=== PATIENT | male | born 1930 | race Caucasian/White ===

== ENCOUNTER 2016-09-07 17:33 | Inpatient (IN) | payer MEDICARE, MEDICAID ==
[2016-09-07] MEDS ORDERED: NS 0.9% 1000 ML* 1,000 ML IV ONE (18:10)
[2016-09-07 18:33] LABS: Hematocrit 44 % (42-52); Hemoglobin 14.4 g/dl (14.0-18.0); Mean Corpuscular HGB Conc 33 g/dl (31-36); Mean Corpuscular Hemoglobin 29 pg (27-31); Mean Corpuscular Volume 88 fL (80-94); Mean Platelet Volume 7 um3 (7.4-10.4); Red Blood Count 4.99 10^6/ul (4.0-5.4); Red Cell Distribution Width 15 % (10.5-15); White Blood Count 17.3 10^3/ul (3.5-10.8)
[2016-09-07 18:45] LABS: ALT 16 U/L (7-52); AST 18 U/L (13-39); Albumin 3.5 g/dL (3.2-5.2); Alkaline Phosphatase 112 U/L (34-104); Anion Gap 8 mmol/L (2-11); Blood Urea Nitrogen 16 mg/dL (6-24); C Reactive Protein 7.56 mg/L (< 5.00); CO2 Carbon Dioxide 28 mmol/L (22-32); Calcium 8.9 mg/dL (8.6-10.3); Chloride 105 mmol/L (101-111); EGFR African American 104.7 (>60); EGFR Non-African American 81.4 (>60); Globulin 4.1 g/dL (2-4); Glucose 107 mg/dL (70-100); Lipase 32 U/L (11.0-82.0); Potassium 3.7 mmol/L (3.5-5.0); Sodium 141 mmol/L (133-145); Total Protein 7.6 g/dL (6.4-8.9)
--- NOTE | 2016-09-07 20:40 | RAD ---
Indication: Seizure. Dehydration. Cough. Comparison: January 10, 2016 Technique: Upright AP 2015 hours Report: Airspace consolidation at the RIGHT mid to upper lung zone without volume loss suspicious for pneumonia. Suggestion of potential additional alveolar consolidation at the bilateral lung bases. Negative for pleural effusion or pneumothorax. Mild cardiomegaly. Unremarkable central pulmonary vasculature. Tortuous thoracic aorta. IMPRESSION: Mild ill-defined bilateral alveolar opacities concerning for potential bronchopneumonia.
[2016-09-07 20:44] LABS: Phenytoin < 2.5 mcg/mL (10-20)
[2016-09-07] MEDS ORDERED: Levofloxacin 750 MG IVPREMIX(* 750 MG/150 ML BAG IVPB ONE (21:10)
[2016-09-07 21:16] LABS: Urine Bacteria Absent (Absent); Urine Bilirubin Negative (Negative); Urine Glucose Negative (Negative); Urine Nitrite Negative (Negative)
[2016-09-07] MEDS ORDERED: Fosphenytoin(*) 1,000 MG in NS 0.9% 50 ML* 50 ML IVPB ONE (21:16)
[2016-09-07] MEDS ORDERED: Senna/Docusate (NF) TAB PO PRN (21:27)
[2016-09-07] MEDS ORDERED: Acetaminophen TAB* 325 MG PO PRN (21:39)
[2016-09-07] MEDS ORDERED: Benzonatate CAP* 100 MG PO PRN (21:39)
[2016-09-07] MEDS ORDERED: Senna TAB PO PRN (21:43)
[2016-09-07] MEDS ORDERED: Docusate CAP* 100 MG PO PRN (21:44)
[2016-09-07] MEDS ORDERED: Heparin VIAL(*) 5000 UNITS/ML VIAL (FIVE THOUSAND) SUBCUT SCH (22:00)
[2016-09-07] MEDS ORDERED: Azithromycin IV(*) 500 MG in NS 0.9% 250 ML* 250 ML IVPB SCH (22:30)
[2016-09-08] MEDS ORDERED: Piperac/Tazob 3.375 gm in NS* 3.375 GM/100 ML BAG IVPB ONE
[2016-09-08] MEDS ORDERED: cefTRIAXone VIAL(*) 1,000 MG in NS 0.9% 50 ML* 50 ML IVPB SCH ×2
--- NOTE | 2016-09-08 00:02 | HP ---
HISTORY AND PHYSICAL: DATE OF ADMISSION: 09/07/16 PRIMARY CARE PHYSICIAN: Dr. Higgins. CHIEF COMPLAINT: Nausea and vomiting. HISTORY OF PRESENT ILLNESS: The patient is an 86-year-old gentleman who presents to [facility] from home after 4 episodes of intractable nausea and vomiting. Unfortunately, the patient at this time has such difficulty hearing that it is difficult to get any kind of a history for him. He also apparently has a history of a CVA and there is a question of whether or not he actually has dementia as well. Apparently, the patient arrived in the ER and upon arrival in the ER did exhibit signs and symptoms consistent with seizure act. The patient also apparently complained of increased weakness when he came in. He has difficulty moving both legs and can feel pain in his left arm, but normally walks fine with the cane. According to the nursing notes, the patient looked to be having a grand mal seizure here. There was a partially eaten [employer] in the patient's mouth at the time. This has subsided. The patient's labs were checked and it looked like his Dilantin level was low. PAST MEDICAL HISTORY: Significant for hypertension, seizure disorders, hyperlipidemia, congestive heart failure, coronary artery disease with 3 stents placed in [place] in 2009, cardioembolic CVA with hemiparesis in 2009, AFib, depression, anxiety, left hip fracture, status post surgery in 2011, BPH, nicotine abuse. CURRENT MEDICATIONS: 1. Eliquis 2.5 mg twice daily. 2. Alprazolam 1 mg 3 times a day. 3. Acetaminophen 1000 mg twice a day. 4. Baclofen 20 mg at bedtime. 5. Amiodarone 100 mg daily. 6. Finasteride 5 mg in the morning. 7. Cholecalciferol 50,000 units weekly. 8. Levothyroxine 175 mcg in the morning. 9. Furosemide 40 mg in the morning. 10. Metoprolol succinate 25 mg daily. 11. Phenytoin 100 mg 2 times a day. 12. Senna/docusate 2 tabs at bedtime. 13. Tramadol 50 mg 2 times a day as needed. 14. Flomax 0.4 mg daily. ALLERGIES: He has no known drug allergies. FAMILY HISTORY: Positive for coronary artery disease. SOCIAL HISTORY: Quit tobacco in 2009. No alcohol. 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 His ex-, Robyn Bowens, is his healthcare proxy and he also lives with his friend, Laurie Fry. REVIEW OF SYSTEMS: Difficult to obtain from the patient with his difficulty hearing but all pertinent positives and negatives are in the history of present illness. Otherwise, it is negative. PHYSICAL EXAMINATION GENERAL: He is a pleasant gentleman, lying in bed, in no acute distress. VITAL SIGNS: Temperature 97.9 degrees, heart rate 57 beats per minute, respiratory rate 20 breaths per minute, pulse ox 99%, blood pressure 195/81. HEENT: Normocephalic, atraumatic. Pupils are equal, round, and reactive to light. Moist mucous membranes. NECK: Supple. No JVD, bruits, palpable thyroid or lymphadenopathy. CHEST: His chest is clear to auscultation and percussion bilaterally. CARDIOVASCULAR: S1, S2 appreciated. ABDOMEN: Positive bowel sounds in all 4 quadrants. Soft, nontender, and nondistended. No hepatosplenomegaly. EXTREMITIES: No cyanosis or clubbing or edema. NEURO: He is alert and oriented and very hard of hearing. Moves all extremities. SKIN: No distinct rashes or abnormalities. DIAGNOSTIC STUDIES/LAB DATA: Sodium 141, potassium 3.7, chloride 105, CO2 28, BUN 16, creatinine 0.89, glucose 107. CRP 7.56. White count 17.3, hemoglobin 14.4, hematocrit 44, and platelets are 391. INR 1.1. Urinalysis: +3 rbc's, phenytoin level is less than 2.5. Chest x-rays as reviewed by Radiology shows mild well defined bilateral alveolar opacities concerning for potential bronchopneumonia. ASSESSMENT AND PLAN: 1. Possible bronchopneumonia. We will start the patient on Zosyn and Zithromax. The recent we started on Zosyn is he may have vomited and aspirated. Zithromax for possible atypicals. Check sputum culture, C and S, urine for Legionella and pneumococcal antigen. I anticipate the patient will make a quick turn around and hopefully go home on p.o. antibiotics. Check CBC in the morning. 2. Seizure disorder. It is unclear if he has been compliant with his Dilantin or not. Apparently he supposedly is according to what his says. He was loaded with Dilantin here and will restart it today. We will check a Dilantin level in the morning. We will have neuro checks q.4 hours. 3. Hypothyroidism, stable. Continue Synthroid. 4. Benign prostatic hypertrophy. Stable, continue finasteride and Flomax. 5. Atrial fibrillation. One chart says he is on the Eliquis. The other one says he is not, but we will continue Eliquis now and confirm in the morning. 6. DVT prophylaxis, on Eliquis. 7. FEN. Regular diet. 8. The patient is a full code. TIME SPENT: Over 80 minutes were spent on this H and P, more than 45 minutes was spent in direct [id number] contact with the patient in evaluation, physical exam, counseling, and coordination of care. CC: Dr. Higgins* [id number]/[facility] #: [id number] JEFE
[2016-09-08] MEDS ORDERED: Metoprolol Tartrate IV* 1 MG/ML 5 ML VIAL IV PRN (00:33)
[2016-09-08] MEDS: amLODIPine TAB* 5 MG PO SCH ×2 (03:45→09:39)
[2016-09-08 05:23] LABS: Hematocrit 41 % (42-52); Hemoglobin 13.5 g/dl (14.0-18.0); Mean Corpuscular HGB Conc 33 g/dl (31-36); Mean Corpuscular Hemoglobin 29 pg (27-31); Mean Corpuscular Volume 88 fL (80-94); Mean Platelet Volume 7 um3 (7.4-10.4); Red Cell Distribution Width 15 % (10.5-15); White Blood Count 21.7 10^3/ul (3.5-10.8)
[2016-09-08 05:26] LABS: Add Diff/Slide Review? Slide Review Added; Comments Flag Yes
[2016-09-08] MEDS: Levothyroxine TAB* 75 MCG TAB PO SCH (05:55)
[2016-09-08] MEDS: Levothyroxine TAB* 100 MCG TAB PO SCH (05:55)
[2016-09-08] MEDS ORDERED: Piperac/Tazob 3.375 gm in NS* 3.375 GM/100 ML BAG IVPB SCH (06:00)
[2016-09-08] MEDS ORDERED: Phenytoin CAP(*) 100 MG CAP.ER PO SCH (09:00)
[2016-09-08] MEDS ORDERED: Levothyroxine TAB* 137 MCG TAB PO SCH (09:00)
[2016-09-08] MEDS ORDERED: Apixaban* 5 MG TAB PO SCH (09:00)
--- NOTE | 2016-09-08 09:13 | DCNOTE ---
Subjective Date of Service: 09/08/16 Interval History: Patient offers no c/o. Objective Active Medications: Acetaminophen (Tylenol Tab*) 975 mg PO BID [facility] Acetaminophen (Tylenol Tab*) 650 mg PO Q4H PRN PRN Reason: FEVER/PAIN Alprazolam (Xanax Tab*) 1 mg PO TID [facility] Amiodarone HCl (Cordarone Tab*) 100 mg PO DAILY [facility] Amlodipine Besylate (Norvasc Tab*) 5 mg PO DAILY [facility] Last Admin: 09/08/16 03:45 Dose: Not Given Apixaban (Eliquis*) 2.5 mg PO BID [facility] Baclofen (Lioresal Tab*) 20 mg PO BEDTIME [facility] Benzonatate (Tessalon Cap*) 200 mg PO TID PRN PRN Reason: COUGH Docusate Sodium (Colace Cap*) 200 mg PO BEDTIME PRN PRN Reason: CONSTIPATION Finasteride (Proscar Tab*) 5 mg PO QAM [facility] Furosemide (Lasix Tab*) 40 mg PO QAM [facility] Azithromycin 500 mg/ Sodium (Chloride) 250 mls @ 250 mls/hr IVPB Q24H [facility] Last Admin: 09/07/16 23:52 Dose: 250 mls/hr Piperacillin Sod/Tazobactam Sod (Zosyn 3.375 Gm In Ns Premix*) 3.375 gm in 100 mls @ 25 mls/hr IVPB Q8H [facility] Last Admin: 09/08/16 05:55 Dose: 25 mls/hr Levetiracetam (Keppra Tab*) 250 mg PO BID [facility] Levothyroxine Sodium (Synthroid Tab*) 100 mcg PO DAILY@0600 [facility] Last Admin: 09/08/16 05:55 Dose: 100 mcg Levothyroxine Sodium (Synthroid Tab*) 75 mcg PO DAILY@0600 [facility] Last Admin: 09/08/16 05:55 Dose: 75 mcg Metoprolol Succinate (Toprol Xl Tab*) 25 mg PO DAILY [facility] Metoprolol Tartrate (Lopressor Iv*) 5 mg IV Q6H PRN PRN Reason: BLOOD PRESSURE Last Admin: 09/08/16 00:46 Dose: 5 mg Senna (Senokot Tab*) 2 tab PO BEDTIME PRN PRN Reason: CONSTIPATION Tamsulosin HCl (Flomax Cap*) 0.4 mg PO DAILY [facility] Tramadol HCl (Ultram*) 50 mg PO TID PRN PRN Reason: PAIN Vital Signs 09/07/16 09/07/16 09/07/16 22:00 22:30 23:13 Temperature 98.3 F Pulse Rate 62 Respiratory 20 Rate Blood Pressure 181/103 197/80 (mmHg) O2 Sat by Pulse 99 Oximetry 09/07/16 09/07/16 09/08/16 23:15 23:30 00:20 Temperature 98.3 F Pulse Rate 61 62 71 Respiratory 20 18 Rate Blood Pressure 195/88 195/88 189/85 (mmHg) O2 Sat by Pulse 99 98 Oximetry 09/08/16 09/08/16 09/08/16 00:55 01:03 01:19 Temperature Pulse Rate 63 62 60 Respiratory 20 Rate Blood Pressure 131/74 153/73 163/86 (mmHg) O2 Sat by Pulse 98 Oximetry 09/08/16 09/08/16 09/08/16 01:40 03:59 07:16 Temperature 97.5 F 98.1 F Pulse Rate 53 57 57 Respiratory 20 16 Rate Blood Pressure 164/68 145/74 133/64 (mmHg) O2 Sat by Pulse 100 96 98 Oximetry Oxygen Devices in Use Now: None Appearance: Alert, partly up in bed. In good spirits. Looks comfortable. Eyes: No Scleral Icterus, PERRLA, - Neck: NL Appearance and Movements; NL JVP, No Thyroid Enlargement, Masses Respiratory: Symmetrical Chest Expansion and Respiratory Effort, Clear to Auscultation, Clear to Percussion Cardiovascular: NL Sounds; No Murmurs; No JVD, RRR, No Edema, - Extremities: No Edema, No Clubbing, Cyanosis, - Skin: No Rash or Ulcers, No Nodules or Sclerosis, - Neurological: NL Sensation - Poor hearing. L hemiparesis. No tremor. He can say his whole name. Result Diagrams: 09/08/16 05:11 09/07/16 18:00 Microbiology and Other Data: Microbiology 09/07/16 22:00 Nasal Screen MRSA (PCR)([facility]) - Final Nasal Mrsa Positive Assess/Plan/Problems-Billing Assessment: - Patient Problems (1) Gastroenteritis Current Visit: Yes Status: Acute Code(s): K52.9 - NONINFECTIVE GASTROENTERITIS AND COLITIS, UNSPECIFIED SNOMED Code(s): 39747837 Comment: Appears to have resolved. ? aspiration. In view of high WBC will give 7 days amox/clav as outpt. Clinically he seems to be at his baseline. I spoke to both his and an aide. And aide will come to pick him up after lunch today. (2) Seizure disorder Current Visit: No Status: Acute Code(s): G40.909 - EPILEPSY, UNSP, NOT INTRACTABLE, WITHOUT STATUS EPILEPTICUS SNOMED Code(s): 470965005 Comment: Phenytoin interacts with apixaban. As his level was <2.5 I will d/ c it and substitute levetiracetam. (3) Afib Current Visit: No Status: Acute Code(s): I48.91 - UNSPECIFIED ATRIAL FIBRILLATION SNOMED Code(s): 88298521 Comment: Continue amiodarone, apixaban, metoprolol XL. (4) CAD (coronary artery disease) Current Visit: No Status: Acute Code(s): I25.10 - ATHSCL HEART DISEASE OF [place] CORONARY ARTERY W/O ANG PCTRS SNOMED Code(s): 69797510 Comment: ASA not on home list, will discuss with aide. (5) Hemiparesis affecting left side as late effect of cerebrovascular accident Current Visit: Yes Status: Acute Code(s): I69.354 - HEMIPLGA FOLLOWING CEREBRAL INFRC AFFECTING LEFT NONDOM SIDE SNOMED Code(s): 752968629 Comment: CVA 2009. Status and Disposition: Discharge now. Fup Dr. Higgins.
[2016-09-08] MEDS: levETIRAcetam TAB* 500 MG PO SCH ×2 (09:35→21:58)
[2016-09-08] MEDS: Amiodarone TAB* 200 MG PO SCH (09:38)
[2016-09-08] MEDS: Finasteride TAB* 5 MG PO SCH (09:39)
[2016-09-08] MEDS: Furosemide TAB* 20 MG PO SCH (09:41)
[2016-09-08] MEDS: Acetaminophen TAB* 325 MG PO SCH ×2 (09:43→21:49)
[2016-09-08] MEDS: ALPRAZolam TAB* 0.25 MG PO SCH ×2 (09:43→12:54)
[2016-09-08] MEDS: Tamsulosin CAP* 0.4 MG PO SCH (09:45)
[2016-09-08] MEDS: Metoprolol Succinate XL TAB* 25 MG PO SCH (09:46)
--- NOTE | 2016-09-08 09:47 | PN ---
Progress Note - Progress Note Note: Time spent on discharge 55 minutes.
[2016-09-08] MEDS: Apixaban* 2.5 MG TAB PO SCH ×2 (11:54→21:48)
[2016-09-08] MEDS: ALPRAZolam TAB* 0.5 MG PO SCH ×2 (13:10→21:49)
--- NOTE | 2016-09-08 14:57 | ED ---
Daylin Narayanan Rebecca, scribed for Jarad Ervin MD on 09/07/16 at 1750 . Complex/Multi-Sys Presentation - HPI Summary HPI Summary: Pt is an 86 y/o M BIBA who presents to ED concerned about dehydration. Pt reports N/V/D and decreased appetite for 3 days. Sx aggravated and alleviated by nothing. Denies any abdominal pain. - History Of Current Complaint Chief Complaint: EDGeneral Time Seen by Provider: 09/07/16 17:49 Hx Obtained From: Patient Onset/Duration: Sudden Onset, Lasting Days - 3 days Timing: Constant Location: Negative Aggravating Factor(s): Nothing Alleviating Factor(s): Nothing Associated Signs And Symptoms: Positive: Nausea, Vomiting, Diarrhea. Negative: Abdominal Pain - Allergies/Home Medications Allergies/Adverse Reactions: Allergies Allergy/AdvReac Type Severity Reaction Status Date / Time No Known Allergies Allergy Verified 02/29/16 11:32 PMH/Surg Hx/FS Hx/Imm Hx Endocrine/Hematology History: Reports: Hx Thyroid Disease Cardiovascular History: Reports: Hx Atrial Fibrillation, Hx Congestive Heart Failure, Hx Coronary Artery Disease - STENTS X 3, Hx Hypertension, Hx Myocardial Infarction, Other Cardiovascular Problems/Disorders - CAD Respiratory History: Reports: Other Respiratory Problems/Disorders - Former smoker History: Reports: Hx Kidney Stones, Other Problems/Disorders - HX OF BPH Musculoskeletal History: Reports: Hx Arthritis, Other Musculoskeletal History - Left sided paralysis Sensory History: Reports: Hx Cataracts - BILATERAL, Hx Contacts or Glasses, Hx Deafness Denies: Hx Hearing Aid - SEVERE HEARING IMPAIRMENT, NO HEARING AID Opthamlomology History: Reports: Hx Cataracts - BILATERAL, Hx Contacts or Glasses Neurological History: Reports: Hx Seizures - 10/11 LAST TIME - PARALYSIS, EYES DART BACK AND FORTH, Hx Transient Ischemic Attacks (TIA), Other Neuro Impairments/Disorders Psychiatric History: Reports: Hx Anxiety, Hx Depression - Surgical History Surgery Procedure, Year, and Place: 2011 CARDIAC CATHERIZATION WITH 3 STENTS PLACEMENT, [place]. CYSTOSCOPY Hx Anesthesia Reactions: No Infectious Disease History: Denies: Traveled Outside the [place] in Last 30 Days - Family History Known Family History: Positive: Other - no fhx of malignant hyperthermia or anesthesia reaction - Social History Lives: With Family Alcohol Use: Rare Alcohol Amount: 1 BEER WITH DINNER Hx Substance Use: Yes Substance Use Type: Reports: Marijuana Substance Use Comment - Amount & Last Used: Often-- treats his seizures with it Hx Tobacco Use: Yes Smoking Status (MU): Former Smoker Type: Cigarettes Length of Time of Smoking/Using Tobacco: 58 years Have You Smoked in the Last Year: No Review of Systems Positive: Other - dehydration Positive: Vomiting, Diarrhea, Nausea. Negative: Abdominal Pain All Other Systems Reviewed And Are Negative: Yes Physical Exam Triage Information Reviewed: Yes Vital Signs On Initial Exam: Initial Vitals Temp Pulse Resp BP Pulse Ox 97.8 F 58 20 184/78 99 09/07/16 17:44 09/07/16 17:44 09/07/16 17:44 09/07/16 17:44 09/07/16 17:44 Vital Signs Reviewed: Yes Appearance: Positive: Well-Appearing, No Pain Distress Skin: Positive: Warm, Skin Color Reflects Adequate Perfusion, Dry Head/Face: Positive: Normal Head/Face Inspection Eyes: Positive: Normal ENT: Positive: Other - Dry mucous membrane Neck: Positive: Supple, Nontender Respiratory/Lung Sounds: Positive: Breath Sounds Present, Rales Cardiovascular: Positive: RRR Abdomen Description: Positive: Nontender, Soft Bowel Sounds: Positive: Present Musculoskeletal: Positive: Normal Neurological: Positive: Normal Psychiatric: Positive: Normal Diagnostics - Vital Signs Vital Signs Temp Pulse Resp BP Pulse Ox 09/07/16 17:44 97.8 F 58 20 184/78 99 - Laboratory Lab Results: Lab Results 09/07/16 09/07/16 09/07/16 Range/Units 18:00 18:00 18:00 WBC 17.3 H (3.5-10.8) 10^3/ul RBC 4.99 (4.0-5.4) 10^6/ul Hgb 14.4 (14.0-18.0) g/dl Hct 44 (42-52) % MCV 88 (80-94) fL MCH 29 (27-31) pg MCHC 33 (31-36) g/dl RDW 15 (10.5-15) % Plt Count 391 (150-450) 10^3/ul MPV 7 L (7.4-10.4) um3 Neut % (Auto) 87.7 H (38-83) % Lymph % (Auto) 6.5 L (25-47) % Price % (Auto) 4.2 (1-9) % Eos % (Auto) 1.3 (0-6) % Baso % (Auto) 0.3 (0-2) % Absolute Neuts (auto) 15.2 H (1.5-7.7) 10^3/ul Absolute Lymphs (auto) 1.1 (1.0-4.8) 10^3/ul Absolute Monos (auto) 0.7 (0-0.8) 10^3/ul Absolute Eos (auto) 0.2 (0-0.6) 10^3/ul Absolute Basos (auto) 0.1 (0-0.2) 10^3/ul Absolute Nucleated RBC 0.01 10^3/ul Nucleated RBC % 0 INR (Anticoag Therapy) (0.89-1.11) Sodium 141 (133-145) mmol/L Potassium 3.7 (3.5-5.0) mmol/L Chloride 105 (101-111) mmol/L Carbon Dioxide 28 (22-32) mmol/L Anion Gap 8 (2-11) mmol/L BUN 16 (6-24) mg/dL Creatinine 0.89 (0.67-1.17) mg/dL Est GFR ( Amer) 104.7 (>60) Est GFR (Non-Af Amer) 81.4 (>60) BUN/Creatinine Ratio 18.0 (8-20) Glucose 107 H (70-100) mg/dL Lactic Acid 1.6 (0.5-2.0) mmol/L Calcium 8.9 (8.6-10.3) mg/dL Total Bilirubin 0.40 (0.2-1.0) mg/dL AST 18 (13-39) U/L ALT 16 (7-52) U/L Alkaline Phosphatase 112 H (34-104) U/L C-Reactive Protein 7.56 H (< 5.00) mg/L Total Protein 7.6 (6.4-8.9) g/dL Albumin 3.5 (3.2-5.2) g/dL Globulin 4.1 H (2-4) g/dL Albumin/Globulin Ratio 0.9 L (1-3) Lipase 32 (11.0-82.0) U/L Urine Color Urine Appearance Urine pH (5-9) Ur Specific [place] (1.010-1.030) Urine Protein (Negative) Urine Ketones (Negative) Urine Blood (Negative) Urine Nitrate (Negative) Urine Bilirubin (Negative) Urine Urobilinogen (Negative) Ur Leukocyte Esterase (Negative) Urine WBC (Auto) (Absent) Urine RBC (Auto) (Absent) Urine Bacteria (Absent) Urine Glucose (Negative) Phenytoin < 2.5 L (10-20) mcg/mL 09/07/16 09/07/16 Range/Units 18:00 20:45 WBC (3.5-10.8) 10^3/ul RBC (4.0-5.4) 10^6/ul Hgb (14.0-18.0) g/dl Hct (42-52) % MCV (80-94) fL MCH (27-31) pg MCHC (31-36) g/dl RDW (10.5-15) % Plt Count (150-450) 10^3/ul MPV (7.4-10.4) um3 Neut % (Auto) (38-83) % Lymph % (Auto) (25-47) % Price % (Auto) (1-9) % Eos % (Auto) (0-6) % Baso % (Auto) (0-2) % Absolute Neuts (auto) (1.5-7.7) 10^3/ul Absolute Lymphs (auto) (1.0-4.8) 10^3/ul Absolute Monos (auto) (0-0.8) 10^3/ul Absolute Eos (auto) (0-0.6) 10^3/ul Absolute Basos (auto) (0-0.2) 10^3/ul Absolute Nucleated RBC 10^3/ul Nucleated RBC % INR (Anticoag Therapy) 1.10 (0.89-1.11) Sodium (133-145) mmol/L Potassium (3.5-5.0) mmol/L Chloride (101-111) mmol/L Carbon Dioxide (22-32) mmol/L Anion Gap (2-11) mmol/L BUN (6-24) mg/dL Creatinine (0.67-1.17) mg/dL Est GFR ( Amer) (>60) Est GFR (Non-Af Amer) (>60) BUN/Creatinine Ratio (8-20) Glucose (70-100) mg/dL Lactic Acid (0.5-2.0) mmol/L Calcium (8.6-10.3) mg/dL Total Bilirubin (0.2-1.0) mg/dL AST (13-39) U/L ALT (7-52) U/L Alkaline Phosphatase (34-104) U/L C-Reactive Protein (< 5.00) mg/L Total Protein (6.4-8.9) g/dL Albumin (3.2-5.2) g/dL Globulin (2-4) g/dL Albumin/Globulin Ratio (1-3) Lipase (11.0-82.0) U/L Urine Color Yellow Urine Appearance Clear Urine pH 7.0 (5-9) Ur Specific [place] 1.011 (1.010-1.030) Urine Protein Negative (Negative) Urine Ketones Trace H (Negative) Urine Blood 1+ H (Negative) Urine Nitrate Negative (Negative) Urine Bilirubin Negative (Negative) Urine Urobilinogen Negative (Negative) Ur Leukocyte Esterase Negative (Negative) Urine WBC (Auto) Trace(0-5/hpf) (Absent) Urine RBC (Auto) 3+(>10/hpf) H (Absent) Urine Bacteria Absent (Absent) Urine Glucose Negative (Negative) Phenytoin (10-20) mcg/mL Result Diagrams: 09/08/16 05:11 09/07/16 18:00 Lab Statement: Any lab studies that have been ordered have been reviewed, and results considered in the medical decision making process. - Radiology CXR Radiology Interpretation Completed By: Radiologist - Mild ill-defined bilateral alveolar opacities concerning for potential bronchopneumonia. Complex Multi-Symp Course/Dx Assessment/Plan: Mr. Bowens is an 86 y/o M who presents to ED concerned about dehydration s/p N/V/D for 3 days. Denies any abd pain. Experienced a witnessed, generalized tonic clonic seizure that lasted approximately 1.5 minutes while in the ED. CXR reveals "Mild ill-defined bilateral alveolar opacities concerning for potential bronchopneumonia." He received Levaquin in the course of the ED. Discussed care of pt with Dr. Negrete, neurologist, who advised administration of Dilantin and close observation. Discussed care of pt with Dr. Lindsay, who accepts pt for admission. He will be admitted with Dx of PNA and breakthrough seizure. - Diagnoses Provider Diagnoses: PNA (pneumonia), Breakthrough seizure - Physician Notifications Discussed Care Of Patient With: Dr. Negrete, neurologist, who advised that pt receive Dilantin and be watched very closely. Dr. Lindsay, hospitalist, at 2130 , who accepts pt for admission. Time Discussed With Above Provider: 21:18 - Critical Care Time Critical Care Time: 30-74 min Discharge - Discharge Plan Condition: Improved Disposition: ADMITTED TO [facility] documentation as recorded by the Daylin desouza Rebecca accurately reflects the service I personally performed and the decisions made by me, Jarad Ervin MD.
--- NOTE | 2016-09-08 18:16 | DS ---
DISCHARGE SUMMARY: DATE OF ADMISSION: 09/07/16 DATE OF DISCHARGE: 09/08/16 HOSPITAL COURSE: This 86-year-old man presented with nausea and vomiting. The patient had a grand mal seizure in the emergency room. I noticed Dilantin level was undetectable in the lab in the emergency room. I spoke on the phone to his aid at his home as well as his . Apparently, his phenytoin was increased recently from b.i.d. to t.i.d. 100 mg. They say he takes it regularly. The patient got 1 L of normal saline. He was treated symptomatically. He seemed to be just fine the next morning. I think his level of consciousness is back to baseline. He has very poor hearing, but can answer simple questions. He has left hemiparesis from an old CVA. I think that he is essentially at his baseline. As phenytoin has a marked interaction with his apixaban, I decided to stop his phenytoin and substitute levetiracetam. In any case, his phenytoin level was undetectable and he does not appear to absorb it well. The levetiracetam should be better absorbed by mouth. I am going to start him at 250 mg b.i.d. of levetiracetam. This may be enough to prevent seizures as he did not have a seizure with any level of phenytoin detectable in his blood at all. Chest x-ray showed questionable small bibasilar linear infiltrates, possibly related to aspiration and/or pneumonia. He did have an elevated white blood cell count, but he tends to run high white blood cell count at times, so this is the highest white blood cell count we have had; however, I note clinically he looked quite well and he was afebrile. He did receive both levofloxacin and piperacillin-tazobactam. He will get 7 days of amoxicillin clavulanate 875 mg b.i.d. at home. FINAL DIAGNOSES: 1. Gastroenteritis. 2. Possible pneumonia and/or aspiration. 3. Atrial fibrillation. 4. Seizure disorder. 5. Old cerebrovascular accident. 6. Coronary artery disease, status post stenting 2009. 7. Benign prostatic hypertrophy. DISCHARGE MEDICATIONS: 1. Acetaminophen 650 mg every 4 hours p.r.n. 2. Apixaban 2.5 mg b.i.d. 3. Levetiracetam 250 mg b.i.d. 4. Amoxicillin clavulanate 875 mg b.i.d. 5. Levothyroxine 175 mcg daily. 6. Tamsulosin 0.4 mg daily. 7. Finasteride 5 mg daily. 8. Baclofen 20 mg at h.s. 9. Alprazolam 1 mg t.i.d. 10. Senna with docusate 2 tablets at bedtime. 11. Tramadol 50 mg t.i.d. p.r.n. 12. Vitamin D3 of 50,000 units as directed. 13. Acetaminophen 1000 mg b.i.d. 14. Metoprolol succinate 25 mg daily. 15. Furosemide 40 mg daily. 16. Amiodarone 100 mg daily. CC: Dr. Higgins * [id number]/[facility] #: [id number] MTDD
[2016-09-08] MEDS: Baclofen TAB* 10 MG PO SCH (21:48)
[2016-09-08] MEDS: Amoxicillin/Clavulanate TAB* 875 MG PO SCH (21:49)
[2016-09-08] MEDS: traMADol TAB* 50 MG PO PRN (21:49)
[2016-09-09] MEDS ORDERED: Ondansetron INJ* 2 MG/ML VIAL IV PRN (03:03)
[2016-09-09] MEDS: Levothyroxine TAB* 100 MCG TAB PO SCH (05:53)
[2016-09-09] MEDS: Levothyroxine TAB* 75 MCG TAB PO SCH (05:53)
[2016-09-09] MEDS: Amiodarone TAB* 200 MG PO SCH (10:19)
[2016-09-09] MEDS: Apixaban* 2.5 MG TAB PO SCH ×2 (10:19→21:00)
[2016-09-09] MEDS: Acetaminophen TAB* 325 MG PO SCH ×2 (10:20→21:00)
[2016-09-09] MEDS: Tamsulosin CAP* 0.4 MG PO SCH (10:20)
[2016-09-09] MEDS: levETIRAcetam TAB* 500 MG PO SCH ×2 (10:20→21:01)
[2016-09-09] MEDS: Furosemide TAB* 20 MG PO SCH (10:20)
[2016-09-09] MEDS: Metoprolol Succinate XL TAB* 25 MG PO SCH (10:20)
[2016-09-09] MEDS: amLODIPine TAB* 5 MG PO SCH (10:21)
[2016-09-09] MEDS: Amoxicillin/Clavulanate TAB* 875 MG PO SCH ×2 (10:21→21:00)
[2016-09-09] MEDS: Finasteride TAB* 5 MG PO SCH (10:21)
[2016-09-09] MEDS: ALPRAZolam TAB* 0.5 MG PO SCH ×3 (10:21→21:00)
--- NOTE | 2016-09-09 12:07 | PN ---
Subjective Date of Service: 09/09/16 Interval History: When asked, patient states his hemorrhoids hurt, and that there is nothing he ever does about that. Objective Active Medications: Acetaminophen (Tylenol Tab*) 975 mg PO BID [facility] Last Admin: 09/09/16 10:20 Dose: 975 mg Acetaminophen (Tylenol Tab*) 650 mg PO Q4H PRN PRN Reason: FEVER/PAIN Alprazolam (Xanax Tab*) 0.5 mg PO TID [facility] Last Admin: 09/09/16 10:21 Dose: 0.5 mg Amiodarone HCl (Cordarone Tab*) 100 mg PO DAILY [facility] Last Admin: 09/09/16 10:19 Dose: 100 mg Amlodipine Besylate (Norvasc Tab*) 5 mg PO DAILY [facility] Last Admin: 09/09/16 10:21 Dose: 5 mg Amoxicillin/Clavulanate Potassium (Augmentin Tab*) 875 mg PO BID [facility] Last Admin: 09/09/16 10:21 Dose: 875 mg Apixaban (Eliquis) 2.5 mg PO BID [facility] Last Admin: 09/09/16 10:19 Dose: 2.5 mg Baclofen (Lioresal Tab*) 20 mg PO BEDTIME [facility] Last Admin: 09/08/16 21:48 Dose: 20 mg Benzonatate (Tessalon Cap*) 200 mg PO TID PRN PRN Reason: COUGH Last Admin: 09/08/16 21:49 Dose: 200 mg Docusate Sodium (Colace Cap*) 200 mg PO BEDTIME PRN PRN Reason: CONSTIPATION Finasteride (Proscar Tab*) 5 mg PO QAM [facility] Last Admin: 09/09/16 10:21 Dose: 5 mg Furosemide (Lasix Tab*) 40 mg PO QAM [facility] Last Admin: 09/09/16 10:20 Dose: 40 mg Levetiracetam (Keppra Tab*) 250 mg PO BID [facility] Last Admin: 09/09/16 10:20 Dose: 250 mg Levothyroxine Sodium (Synthroid Tab*) 100 mcg PO DAILY@0600 [facility] Last Admin: 09/09/16 05:53 Dose: 100 mcg Levothyroxine Sodium (Synthroid Tab*) 75 mcg PO DAILY@0600 [facility] Last Admin: 09/09/16 05:53 Dose: 75 mcg Metoprolol Succinate (Toprol Xl Tab*) 25 mg PO DAILY [facility] Last Admin: 09/09/16 10:20 Dose: 25 mg Metoprolol Tartrate (Lopressor Iv*) 5 mg IV Q6H PRN PRN Reason: BLOOD PRESSURE Last Admin: 09/08/16 00:46 Dose: 5 mg Ondansetron HCl (Zofran Inj*) 4 mg IV Q4H PRN PRN Reason: NAUSEA Last Admin: 09/09/16 05:12 Dose: 4 mg Senna (Senokot Tab*) 2 tab PO BEDTIME PRN PRN Reason: CONSTIPATION Tamsulosin HCl (Flomax Cap*) 0.4 mg PO DAILY [facility] Last Admin: 09/09/16 10:20 Dose: 0.4 mg Tramadol HCl (Ultram*) 50 mg PO TID PRN PRN Reason: PAIN Last Admin: 09/08/16 21:49 Dose: 50 mg Vital Signs 09/08/16 09/08/16 09/08/16 15:47 19:29 19:30 Temperature 97.7 F 98.9 F Pulse Rate 51 51 Respiratory 18 Rate Blood Pressure 111/56 102/51 (mmHg) O2 Sat by Pulse 97 98 Oximetry 09/08/16 09/08/16 09/08/16 21:49 23:25 23:49 Temperature 98.0 F Pulse Rate 49 Respiratory 18 16 16 Rate Blood Pressure 119/59 (mmHg) O2 Sat by Pulse 96 Oximetry 09/09/16 09/09/16 09/09/16 03:43 08:05 10:21 Temperature 98.0 F Pulse Rate 54 58 Respiratory 16 16 20 Rate Blood Pressure 142/47 132/70 (mmHg) O2 Sat by Pulse 99 98 Oximetry Oxygen Devices in Use Now: None Appearance: Alert, partly up in bed. In good spirits. Looks comfortable. Neck: NL Appearance and Movements; NL JVP, No Thyroid Enlargement, Masses Respiratory: Symmetrical Chest Expansion and Respiratory Effort, Clear to Auscultation, Clear to Percussion Cardiovascular: NL Sounds; No Murmurs; No JVD, RRR, No Edema, - Extremities: No Edema, No Clubbing, Cyanosis, - Skin: No Rash or Ulcers, No Nodules or Sclerosis, - Neurological: Alert and Oriented x 3, NL Sensation - He knew the correct day of the month. No tremor. Good verbal skills. , - - L hemiparesis as before. Result Diagrams: 09/08/16 05:11 09/07/16 18:00 Additional Lab and Data: Lab Results 09/07/16 09/07/16 09/07/16 Range/Units 18:00 18:00 18:00 WBC 17.3 H (3.5-10.8) 10^3/ul RBC 4.99 (4.0-5.4) 10^6/ul Hgb 14.4 (14.0-18.0) g/dl Hct 44 (42-52) % MCV 88 (80-94) fL MCH 29 (27-31) pg MCHC 33 (31-36) g/dl RDW 15 (10.5-15) % Plt Count 391 (150-450) 10^3/ul MPV 7 L (7.4-10.4) um3 Neut % (Auto) 87.7 H (38-83) % Lymph % (Auto) 6.5 L (25-47) % Story % (Auto) 4.2 (1-9) % Eos % (Auto) 1.3 (0-6) % Baso % (Auto) 0.3 (0-2) % Absolute Neuts (auto) 15.2 H (1.5-7.7) 10^3/ul Absolute Lymphs (auto) 1.1 (1.0-4.8) 10^3/ul Absolute Monos (auto) 0.7 (0-0.8) 10^3/ul Absolute Eos (auto) 0.2 (0-0.6) 10^3/ul Absolute Basos (auto) 0.1 (0-0.2) 10^3/ul Absolute Nucleated RBC 0.01 10^3/ul Nucleated RBC % 0 INR (Anticoag Therapy) (0.89-1.11) Sodium 141 (133-145) mmol/L Potassium 3.7 (3.5-5.0) mmol/L Chloride 105 (101-111) mmol/L Carbon Dioxide 28 (22-32) mmol/L Anion Gap 8 (2-11) mmol/L BUN 16 (6-24) mg/dL Creatinine 0.89 (0.67-1.17) mg/dL Est GFR ( Amer) 104.7 (>60) Est GFR (Non-Af Amer) 81.4 (>60) BUN/Creatinine Ratio 18.0 (8-20) Glucose 107 H (70-100) mg/dL Lactic Acid 1.6 (0.5-2.0) mmol/L Calcium 8.9 (8.6-10.3) mg/dL Total Bilirubin 0.40 (0.2-1.0) mg/dL AST 18 (13-39) U/L ALT 16 (7-52) U/L Alkaline Phosphatase 112 H (34-104) U/L C-Reactive Protein 7.56 H (< 5.00) mg/L Total Protein 7.6 (6.4-8.9) g/dL Albumin 3.5 (3.2-5.2) g/dL Globulin 4.1 H (2-4) g/dL Albumin/Globulin Ratio 0.9 L (1-3) Lipase 32 (11.0-82.0) U/L Urine Color Urine Appearance Urine pH (5-9) Ur Specific [place] (1.010-1.030) Urine Protein (Negative) Urine Ketones (Negative) Urine Blood (Negative) Urine Nitrate (Negative) Urine Bilirubin (Negative) Urine Urobilinogen (Negative) Ur Leukocyte Esterase (Negative) Urine WBC (Auto) (Absent) Urine RBC (Auto) (Absent) Urine Bacteria (Absent) Urine Glucose (Negative) Phenytoin < 2.5 L (10-20) mcg/mL 09/07/16 09/07/16 Range/Units 18:00 20:45 WBC (3.5-10.8) 10^3/ul RBC (4.0-5.4) 10^6/ul Hgb (14.0-18.0) g/dl Hct (42-52) % MCV (80-94) fL MCH (27-31) pg MCHC (31-36) g/dl RDW (10.5-15) % Plt Count (150-450) 10^3/ul MPV (7.4-10.4) um3 Neut % (Auto) (38-83) % Lymph % (Auto) (25-47) % Story % (Auto) (1-9) % Eos % (Auto) (0-6) % Baso % (Auto) (0-2) % Absolute Neuts (auto) (1.5-7.7) 10^3/ul Absolute Lymphs (auto) (1.0-4.8) 10^3/ul Absolute Monos (auto) (0-0.8) 10^3/ul Absolute Eos (auto) (0-0.6) 10^3/ul Absolute Basos (auto) (0-0.2) 10^3/ul Absolute Nucleated RBC 10^3/ul Nucleated RBC % INR (Anticoag Therapy) 1.10 (0.89-1.11) Sodium (133-145) mmol/L Potassium (3.5-5.0) mmol/L Chloride (101-111) mmol/L Carbon Dioxide (22-32) mmol/L Anion Gap (2-11) mmol/L BUN (6-24) mg/dL Creatinine (0.67-1.17) mg/dL Est GFR ( Amer) (>60) Est GFR (Non-Af Amer) (>60) BUN/Creatinine Ratio (8-20) Glucose (70-100) mg/dL Lactic Acid (0.5-2.0) mmol/L Calcium (8.6-10.3) mg/dL Total Bilirubin (0.2-1.0) mg/dL AST (13-39) U/L ALT (7-52) U/L Alkaline Phosphatase (34-104) U/L C-Reactive Protein (< 5.00) mg/L Total Protein (6.4-8.9) g/dL Albumin (3.2-5.2) g/dL Globulin (2-4) g/dL Albumin/Globulin Ratio (1-3) Lipase (11.0-82.0) U/L Urine Color Yellow Urine Appearance Clear Urine pH 7.0 (5-9) Ur Specific [place] 1.011 (1.010-1.030) Urine Protein Negative (Negative) Urine Ketones Trace H (Negative) Urine Blood 1+ H (Negative) Urine Nitrate Negative (Negative) Urine Bilirubin Negative (Negative) Urine Urobilinogen Negative (Negative) Ur Leukocyte Esterase Negative (Negative) Urine WBC (Auto) Trace(0-5/hpf) (Absent) Urine RBC (Auto) 3+(>10/hpf) H (Absent) Urine Bacteria Absent (Absent) Urine Glucose Negative (Negative) Phenytoin (10-20) mcg/mL Microbiology and Other Data: Microbiology 09/07/16 22:00 Nasal Screen MRSA (PCR)([facility]) - Final Nasal Mrsa Positive Assess/Plan/Problems-Billing Assessment: - Patient Problems (1) Gastroenteritis Current Visit: Yes Status: Acute Code(s): K52.9 - NONINFECTIVE GASTROENTERITIS AND COLITIS, UNSPECIFIED SNOMED Code(s): 37879553 Comment: Appears to have resolved. ? aspiration. In view of high WBC will give amox/clav as outpt to finish on 09/15. Clinically he seems to have improved wehn his alprazolam dose was decreased. Message left for his ex-sife to call me back to discuss his discharge. (2) Seizure disorder Current Visit: No Status: Acute Code(s): G40.909 - EPILEPSY, UNSP, NOT INTRACTABLE, WITHOUT STATUS EPILEPTICUS SNOMED Code(s): 789141384 Comment: Phenytoin interacts with apixaban. As his level was <2.5 I d/c'd it and substituted levetiracetam, which he is tolerating so far. (3) Afib Current Visit: No Status: Acute Code(s): I48.91 - UNSPECIFIED ATRIAL FIBRILLATION SNOMED Code(s): 10142892 Comment: Continue amiodarone, apixaban, metoprolol XL. (4) CAD (coronary artery disease) Current Visit: No Status: Acute Code(s): I25.10 - ATHSCL HEART DISEASE OF [place] CORONARY ARTERY W/O ANG PCTRS SNOMED Code(s): 83673464 Comment: ASA not on home list, will discuss with aide. (5) Hemiparesis affecting left side as late effect of cerebrovascular accident Current Visit: Yes Status: Acute Code(s): I69.354 - HEMIPLGA FOLLOWING CEREBRAL INFRC AFFECTING LEFT NONDOM SIDE SNOMED Code(s): 297687860 Comment: CVA 2009. Status and Disposition: Discharge now. Fup Dr. Higgins.
--- NOTE | 2016-09-09 15:01 | RAD ---
INDICATION: Enlarged prostate gland. COMPARISON: Correlation is made with a prior CT urogram from December 21, 2011. TECHNIQUE: Multiple real-time images of the urinary bladder were obtained. FINDINGS: The bladder is normal in contour. No intraluminal abnormalities are seen. No bladder wall thickening is noted. There are bilateral ureteral jets present within the urinary bladder. The prostate gland measured 7.0 x 5.4 x 6.8 cm for a total volume of 135 ml. The prevoid volume was 529 ml. The patient was unable to void at this time. IMPRESSION: ENLARGED PROSTATE GLAND AND DISTENDED BLADDER.
[2016-09-09] MEDS: Baclofen TAB* 10 MG PO SCH (21:01)
[2016-09-09] MEDS: traMADol TAB* 50 MG PO PRN (21:09)
[2016-09-10] MEDS: traMADol TAB* 50 MG PO PRN (03:33)
[2016-09-10] MEDS: Levothyroxine TAB* 75 MCG TAB PO SCH (06:27)
[2016-09-10] MEDS: Levothyroxine TAB* 100 MCG TAB PO SCH (06:27)
[2016-09-10 06:56] LABS: Hematocrit 40 % (42-52); Mean Corpuscular HGB Conc 33 g/dl (31-36); Mean Corpuscular Hemoglobin 29 pg (27-31); Mean Corpuscular Volume 88 fL (80-94); Mean Platelet Volume 7 um3 (7.4-10.4); Red Blood Count 4.54 10^6/ul (4.0-5.4); Red Cell Distribution Width 15 % (10.5-15); White Blood Count 8.3 10^3/ul (3.5-10.8)
[2016-09-10] MEDS ORDERED: Pneumococcal Vac Polyvalent* 0.5 ML VIAL IM ONE (09:00)
[2016-09-10] MEDS: Amoxicillin/Clavulanate TAB* 875 MG PO SCH (09:09)
[2016-09-10] MEDS: amLODIPine TAB* 5 MG PO SCH (09:09)
[2016-09-10] MEDS: Apixaban* 2.5 MG TAB PO SCH (09:09)
[2016-09-10] MEDS: Metoprolol Succinate XL TAB* 25 MG PO SCH (09:09)
[2016-09-10] MEDS: ALPRAZolam TAB* 0.5 MG PO SCH ×2 (09:10→13:58)
[2016-09-10] MEDS: Acetaminophen TAB* 325 MG PO SCH (09:10)
[2016-09-10] MEDS: Tamsulosin CAP* 0.4 MG PO SCH (09:10)
[2016-09-10] MEDS: Furosemide TAB* 20 MG PO SCH (09:10)
[2016-09-10] MEDS: Finasteride TAB* 5 MG PO SCH (09:10)
[2016-09-10] MEDS: levETIRAcetam TAB* 500 MG PO SCH (09:11)
[2016-09-10] MEDS: Amiodarone TAB* 200 MG PO SCH (09:11)
--- NOTE | 2016-09-10 09:24 | DCNOTE ---
Subjective Date of Service: 09/10/16 Interval History: No c/o. Objective Active Medications: Acetaminophen (Tylenol Tab*) 975 mg PO BID [facility] Last Admin: 09/10/16 09:10 Dose: 975 mg Acetaminophen (Tylenol Tab*) 650 mg PO Q4H PRN PRN Reason: FEVER/PAIN Alprazolam (Xanax Tab*) 0.5 mg PO TID [facility] Last Admin: 09/10/16 09:10 Dose: 0.5 mg Amiodarone HCl (Cordarone Tab*) 100 mg PO DAILY [facility] Last Admin: 09/10/16 09:11 Dose: 100 mg Amlodipine Besylate (Norvasc Tab*) 5 mg PO DAILY [facility] Last Admin: 09/10/16 09:09 Dose: 5 mg Amoxicillin/Clavulanate Potassium (Augmentin Tab*) 875 mg PO BID [facility] Last Admin: 09/10/16 09:09 Dose: 875 mg Apixaban (Eliquis) 2.5 mg PO BID [facility] Last Admin: 09/10/16 09:09 Dose: 2.5 mg Baclofen (Lioresal Tab*) 20 mg PO BEDTIME [facility] Last Admin: 09/09/16 21:01 Dose: 20 mg Benzonatate (Tessalon Cap*) 200 mg PO TID PRN PRN Reason: COUGH Last Admin: 09/08/16 21:49 Dose: 200 mg Docusate Sodium (Colace Cap*) 200 mg PO BEDTIME PRN PRN Reason: CONSTIPATION Finasteride (Proscar Tab*) 5 mg PO QAM [facility] Last Admin: 09/10/16 09:10 Dose: 5 mg Furosemide (Lasix Tab*) 40 mg PO QAM [facility] Last Admin: 09/10/16 09:10 Dose: 40 mg Levetiracetam (Keppra Tab*) 250 mg PO BID [facility] Last Admin: 09/10/16 09:11 Dose: 250 mg Levothyroxine Sodium (Synthroid Tab*) 100 mcg PO DAILY@0600 [facility] Last Admin: 09/10/16 06:27 Dose: 100 mcg Levothyroxine Sodium (Synthroid Tab*) 75 mcg PO DAILY@0600 [facility] Last Admin: 09/10/16 06:27 Dose: 75 mcg Metoprolol Succinate (Toprol Xl Tab*) 25 mg PO DAILY [facility] Last Admin: 09/10/16 09:09 Dose: 25 mg Metoprolol Tartrate (Lopressor Iv*) 5 mg IV Q6H PRN PRN Reason: BLOOD PRESSURE Last Admin: 09/08/16 00:46 Dose: 5 mg Ondansetron HCl (Zofran Inj*) 4 mg IV Q4H PRN PRN Reason: NAUSEA Last Admin: 09/09/16 05:12 Dose: 4 mg Senna (Senokot Tab*) 2 tab PO BEDTIME PRN PRN Reason: CONSTIPATION Tamsulosin HCl (Flomax Cap*) 0.4 mg PO DAILY [facility] Last Admin: 09/10/16 09:10 Dose: 0.4 mg Tramadol HCl (Ultram*) 50 mg PO TID PRN PRN Reason: PAIN Last Admin: 09/10/16 03:33 Dose: 50 mg Vital Signs 09/09/16 09/09/16 09/09/16 10:21 12:21 16:14 Temperature 98.3 F Pulse Rate 57 Respiratory 20 16 Rate Blood Pressure 136/69 (mmHg) O2 Sat by Pulse 95 Oximetry 09/09/16 09/09/16 09/09/16 20:00 21:00 21:09 Temperature Pulse Rate Respiratory 16 16 16 Rate Blood Pressure (mmHg) O2 Sat by Pulse Oximetry 09/09/16 09/09/16 09/09/16 23:00 23:09 23:24 Temperature 98.2 F Pulse Rate 57 Respiratory 16 16 16 Rate Blood Pressure 130/62 (mmHg) O2 Sat by Pulse 94 Oximetry 09/10/16 09/10/16 09/10/16 03:33 04:52 05:33 Temperature 98.2 F Pulse Rate 54 Respiratory 16 16 16 Rate Blood Pressure 150/66 (mmHg) O2 Sat by Pulse 92 Oximetry 09/10/16 09:10 Temperature Pulse Rate Respiratory 16 Rate Blood Pressure (mmHg) O2 Sat by Pulse Oximetry Oxygen Devices in Use Now: None Appearance: Alert, partly up in bed. In good spirits. Looks comfortable. Ears/Nose/Mouth/Throat: Clear Oropharnyx, Mucous Membranes Moist Neck: NL Appearance and Movements; NL JVP, No Thyroid Enlargement, Masses Respiratory: Symmetrical Chest Expansion and Respiratory Effort, Clear to Auscultation, Clear to Percussion Cardiovascular: NL Sounds; No Murmurs; No JVD, RRR, No Edema, - Extremities: No Edema, No Clubbing, Cyanosis, - Skin: No Rash or Ulcers, No Nodules or Sclerosis, - Neurological: Alert and Oriented x 3, NL Sensation - Poor hearing. Repeats himself frequently. No tremor. Result Diagrams: 09/10/16 06:27 09/07/16 18:00 Additional Lab and Data: Lab Results 09/07/16 09/07/16 09/07/16 Range/Units 18:00 18:00 18:00 WBC 17.3 H (3.5-10.8) 10^3/ul RBC 4.99 (4.0-5.4) 10^6/ul Hgb 14.4 (14.0-18.0) g/dl Hct 44 (42-52) % MCV 88 (80-94) fL MCH 29 (27-31) pg MCHC 33 (31-36) g/dl RDW 15 (10.5-15) % Plt Count 391 (150-450) 10^3/ul MPV 7 L (7.4-10.4) um3 Neut % (Auto) 87.7 H (38-83) % Lymph % (Auto) 6.5 L (25-47) % [place] % (Auto) 4.2 (1-9) % Eos % (Auto) 1.3 (0-6) % Baso % (Auto) 0.3 (0-2) % Absolute Neuts (auto) 15.2 H (1.5-7.7) 10^3/ul Absolute Lymphs (auto) 1.1 (1.0-4.8) 10^3/ul Absolute Monos (auto) 0.7 (0-0.8) 10^3/ul Absolute Eos (auto) 0.2 (0-0.6) 10^3/ul Absolute Basos (auto) 0.1 (0-0.2) 10^3/ul Absolute Nucleated RBC 0.01 10^3/ul Nucleated RBC % 0 INR (Anticoag Therapy) (0.89-1.11) Sodium 141 (133-145) mmol/L Potassium 3.7 (3.5-5.0) mmol/L Chloride 105 (101-111) mmol/L Carbon Dioxide 28 (22-32) mmol/L Anion Gap 8 (2-11) mmol/L BUN 16 (6-24) mg/dL Creatinine 0.89 (0.67-1.17) mg/dL Est GFR ( Amer) 104.7 (>60) Est GFR (Non-Af Amer) 81.4 (>60) BUN/Creatinine Ratio 18.0 (8-20) Glucose 107 H (70-100) mg/dL Lactic Acid 1.6 (0.5-2.0) mmol/L Calcium 8.9 (8.6-10.3) mg/dL Total Bilirubin 0.40 (0.2-1.0) mg/dL AST 18 (13-39) U/L ALT 16 (7-52) U/L Alkaline Phosphatase 112 H (34-104) U/L C-Reactive Protein 7.56 H (< 5.00) mg/L Total Protein 7.6 (6.4-8.9) g/dL Albumin 3.5 (3.2-5.2) g/dL Globulin 4.1 H (2-4) g/dL Albumin/Globulin Ratio 0.9 L (1-3) Lipase 32 (11.0-82.0) U/L Urine Color Urine Appearance Urine pH (5-9) Ur Specific [place] (1.010-1.030) Urine Protein (Negative) Urine Ketones (Negative) Urine Blood (Negative) Urine Nitrate (Negative) Urine Bilirubin (Negative) Urine Urobilinogen (Negative) Ur Leukocyte Esterase (Negative) Urine WBC (Auto) (Absent) Urine RBC (Auto) (Absent) Urine Bacteria (Absent) Urine Glucose (Negative) Phenytoin < 2.5 L (10-20) mcg/mL 09/07/16 09/07/16 Range/Units 18:00 20:45 WBC (3.5-10.8) 10^3/ul RBC (4.0-5.4) 10^6/ul Hgb (14.0-18.0) g/dl Hct (42-52) % MCV (80-94) fL MCH (27-31) pg MCHC (31-36) g/dl RDW (10.5-15) % Plt Count (150-450) 10^3/ul MPV (7.4-10.4) um3 Neut % (Auto) (38-83) % Lymph % (Auto) (25-47) % [place] % (Auto) (1-9) % Eos % (Auto) (0-6) % Baso % (Auto) (0-2) % Absolute Neuts (auto) (1.5-7.7) 10^3/ul Absolute Lymphs (auto) (1.0-4.8) 10^3/ul Absolute Monos (auto) (0-0.8) 10^3/ul Absolute Eos (auto) (0-0.6) 10^3/ul Absolute Basos (auto) (0-0.2) 10^3/ul Absolute Nucleated RBC 10^3/ul Nucleated RBC % INR (Anticoag Therapy) 1.10 (0.89-1.11) Sodium (133-145) mmol/L Potassium (3.5-5.0) mmol/L Chloride (101-111) mmol/L Carbon Dioxide (22-32) mmol/L Anion Gap (2-11) mmol/L BUN (6-24) mg/dL Creatinine (0.67-1.17) mg/dL Est GFR ( Amer) (>60) Est GFR (Non-Af Amer) (>60) BUN/Creatinine Ratio (8-20) Glucose (70-100) mg/dL Lactic Acid (0.5-2.0) mmol/L Calcium (8.6-10.3) mg/dL Total Bilirubin (0.2-1.0) mg/dL AST (13-39) U/L ALT (7-52) U/L Alkaline Phosphatase (34-104) U/L C-Reactive Protein (< 5.00) mg/L Total Protein (6.4-8.9) g/dL Albumin (3.2-5.2) g/dL Globulin (2-4) g/dL Albumin/Globulin Ratio (1-3) Lipase (11.0-82.0) U/L Urine Color Yellow Urine Appearance Clear Urine pH 7.0 (5-9) Ur Specific [place] 1.011 (1.010-1.030) Urine Protein Negative (Negative) Urine Ketones Trace H (Negative) Urine Blood 1+ H (Negative) Urine Nitrate Negative (Negative) Urine Bilirubin Negative (Negative) Urine Urobilinogen Negative (Negative) Ur Leukocyte Esterase Negative (Negative) Urine WBC (Auto) Trace(0-5/hpf) (Absent) Urine RBC (Auto) 3+(>10/hpf) H (Absent) Urine Bacteria Absent (Absent) Urine Glucose Negative (Negative) Phenytoin (10-20) mcg/mL Microbiology and Other Data: Microbiology 09/07/16 22:00 Nasal Screen MRSA (PCR)([facility]) - Final Nasal Mrsa Positive Assess/Plan/Problems-Billing Assessment: - Patient Problems (1) Gastroenteritis Current Visit: Yes Status: Acute Code(s): K52.9 - NONINFECTIVE GASTROENTERITIS AND COLITIS, UNSPECIFIED SNOMED Code(s): 06962330 Comment: Appears to have resolved. ? aspiration. In view of high WBC will give amox/clav as outpt to finish on 09/15. Clinically he seems to have improved when his alprazolam dose was decreased. I spoke with his ex- 09/09 about the discharge plans. (2) Seizure disorder Current Visit: No Status: Acute Code(s): G40.909 - EPILEPSY, UNSP, NOT INTRACTABLE, WITHOUT STATUS EPILEPTICUS SNOMED Code(s): 426773459 Comment: Phenytoin interacts with apixaban. As his level was <2.5 I d/c'd it and substituted levetiracetam, which he is tolerating so far. EEG done 09/10, report pending. (3) Afib Current Visit: No Status: Acute Code(s): I48.91 - UNSPECIFIED ATRIAL FIBRILLATION SNOMED Code(s): 13350071 Comment: Continue amiodarone, apixaban, metoprolol XL. (4) CAD (coronary artery disease) Current Visit: No Status: Acute Code(s): I25.10 - ATHSCL HEART DISEASE OF [place] CORONARY ARTERY W/O ANG PCTRS SNOMED Code(s): 13903479 Comment: ASA not on home list, will discuss with aide. (5) Hemiparesis affecting left side as late effect of cerebrovascular accident Current Visit: Yes Status: Acute Code(s): I69.354 - HEMIPLGA FOLLOWING CEREBRAL INFRC AFFECTING LEFT NONDOM SIDE SNOMED Code(s): 128734816 Comment: CVA 2009. (6) Prostatism Current Visit: Yes Status: Acute Code(s): N40.0 - BENIGN PROSTATIC HYPERPLASIA WITHOUT LOWER URINRY TRACT SYMP SNOMED Code(s): 24831136 Comment: Prostate volume 135 ml on bladder US 09/09, bladder volume 529 ml. Bladder scan 09/10 before discharge. Status and Disposition: Discharge now. Fup Dr. Higgins.
[2016-09-10 11:50] VITALS: BP 148/85
--- NOTE | 2016-09-10 13:24 | PN ---
"Progress Note - Progress Note Note: Confidential Drug Utilization Report Search Terms: freddy bullard, 1930 Search Date: 09/10/2016 01:23:09 PM This report was requested by: Yann Taylor | Reference #: [id number] Others' Prescriptions Patient Name: Freddy Bullard Date: 1930 Address: [address] [place] [address] Sex: Male Rx Written Rx Dispensed Drug Quantity Days Supply Prescriber Name 08/20/2016 09/05/2016 alprazolam 1 mg tablet 90 30 Patrick Higgins MD 08/07/2016 08/17/2016 alprazolam 0.5 mg tablet 90 30 Patrick Higgins MD 08/08/2016 08/13/2016 clonazepam 0.5 mg tablet 60 20 aPtrick Higgins MD 08/02/2016 08/02/2016 alprazolam 0.25 mg tablet 90 30 Patrick Higgins MD 08/02/2016 08/02/2016 tramadol hcl 50 mg tablet 120 30 Patrick Higgins MD 12/13/2015 12/16/2015 acetaminophen-cod #3 tablet 20 5 Verduin, Kathe Calle NP 11/08/2015 11/08/2015 alprazolam 0.5 mg tablet 90 23 Kathe Rush NP 11/08/2015 11/08/2015 acetaminophen-cod #3 tablet 20 5 Vercatrachitain, Kathe Calle NP 10/07/2015 10/10/2015 alprazolam 0.5 mg tablet 90 22 Vermandy, Kathe Calle NP Patient Name: Freddy Bullard Date: 1930 Address: [address] [place] [id number] Sex: Male Rx Written Rx Dispensed Drug Quantity Days Supply Prescriber Name 07/06/2016 07/06/2016 oxycodone hcl 5 mg tablet 50 16 Brandyn Mercado (GREY) 06/28/2016 06/28/2016 tramadol hcl 50 mg tablet 90 30 Loraine Kang 06/28/2016 06/28/2016 alprazolam 1 mg tablet 90 30 Loarine Kang 06/20/2016 06/25/2016 oxycodone hcl 5 mg tablet 30 10 Brandyn Mercado (TEACHER AIDE [employer]ER[employer]) 06/20/2016 06/21/2016 tramadol hcl 50 mg tablet 30 10 Enrike Mercadomundo (TEACHER AIDE [employer]ERICAL) 06/18/2016 06/18/2016 alprazolam 1 mg tablet 30 10 Enrike Mercadomundo (TEACHER AIDE CLERICAL) 06/06/2016 06/06/2016 tramadol hcl 50 mg tablet 30 10 Enrike Mercadomundo (TEACHER AIDE CLERICAL) 06/06/2016 06/06/2016 oxycodone hcl 5 mg tablet 30 10 Enrike Mercadomundo (TEACHER AIDE [employer]ERICAL) 06/01/2016 06/01/2016 alprazolam 1 mg tablet 30 10 Enrike Mercadomundo (TEACHER AIDE [employer]ERICAL) 05/23/2016 05/25/2016 alprazolam 1 mg tablet 15 5 Enrike Mercadomundo (TEACHER AIDE [employer]ERICAL) 05/25/2016 05/25/2016 tramadol hcl 50 mg tablet 30 10 Enrike Mercadomundo (TEACHER AIDE [employer]ERICAL) 05/07/2016 05/07/2016 tramadol hcl 50 mg tablet 30 10 Enrike Mercadomundo (TEACHER AIDE [employer]ERICAL) 05/07/2016 05/07/2016 alprazolam 0.25 mg tablet 90 10 Enrike Mercadomundo (TEACHER AIDE [employer]ER[employer]) 04/24/2016 04/24/2016 oxycodone hcl 5 mg tablet 60 20 Mason Sutton D (LICENSED PRACTICAL NURSE INSTRUCTOR) 04/24/2016 04/24/2016 alprazolam 0.25 mg tablet 90 10 Mason Sutton D (LICENSED PRACTICAL NURSE INSTRUCTOR) 04/19/2016 04/19/2016 tramadol hcl 50 mg tablet 40 13 Mason Sutton D (LICENSED PRACTICAL NURSE INSTRUCTOR) 04/19/2016 04/19/2016 alprazolam 0.25 mg tablet 60 6 Mason Sutton D (LICENSED PRACTICAL NURSE INSTRUCTOR) 04/12/2016 04/12/2016 alprazolam 0.25 mg tablet 90 10 Enrike Mercadomundo (TEACHER AIDE CLERICAL) 04/09/2016 04/10/2016 oxycodone hcl 5 mg tablet 30 10 Enrike Mercadomundo (TEACHER AIDE CLERICAL) 04/02/2016 04/04/2016 oxycodone hcl 5 mg tablet 21 7 Enrike Mercadomundo (TEACHER AIDE CLERICAL) 04/02/2016 04/03/2016 oxycodone hcl 5 mg tablet 9 3 Brandyn Mercado (TEACHER AIDE CLERICAL) 03/24/2016 03/25/2016 alprazolam 0.25 mg tablet 90 10 Brandyn Mercado (TEACHER AIDE CLERICAL) 03/20/2016 03/20/2016 tramadol hcl 50 mg tablet 60 20 Mason Sutton (LICENSED PRACTICAL NURSE INSTRUCTOR) 03/12/2016 03/12/2016 oxycodone hcl 5 mg tablet 30 10 Brandyn Mercado (TEACHER AIDE CLERICAL) 03/12/2016 03/12/2016 alprazolam 0.25 mg tablet 90 10 Brandyn Mercado (TEACHER AIDE CLERICAL) 03/08/2016 03/08/2016 tramadol hcl 50 mg tablet 40 13 Mason Sutton (LICENSED PRACTICAL NURSE INSTRUCTOR) 03/02/2016 03/02/2016 alprazolam 0.25 mg tablet 90 10 Mason Sutton (LICENSED PRACTICAL NURSE INSTRUCTOR) 02/27/2016 02/27/2016 tramadol hcl 50 mg tablet 30 10 Brandyn Mercado (TEACHER AIDE CLERICAL) 02/17/2016 02/17/2016 tramadol hcl 50 mg tablet 30 10 Loraine Kang 02/15/2016 02/15/2016 tramadol hcl 50 mg tablet 14 14 Mason Sutton (LICENSED PRACTICAL NURSE INSTRUCTOR) 02/15/2016 02/15/2016 alprazolam 0.25 mg tablet 60 6 Mason Sutton (LICENSED PRACTICAL NURSE INSTRUCTOR) 02/09/2016 02/09/2016 oxycodone hcl 5 mg tablet 40 13 Mason Sutton (LICENSED PRACTICAL NURSE INSTRUCTOR) 02/09/2016 02/09/2016 alprazolam 0.5 mg tablet 60 20 Mason Sutton (LICENSED PRACTICAL NURSE INSTRUCTOR) 01/30/2016 01/30/2016 alprazolam 0.5 mg tablet 30 10 Brandyn Mercado (TEACHER AIDE [employer]ERICAL) 01/26/2016 01/26/2016 oxycodone hcl 5 mg tablet 40 10 Mason Sutton (LICENSED PRACTICAL NURSE INSTRUCTOR) 01/23/2016 01/23/2016 alprazolam 0.5 mg tablet 20 10 Brandyn Mercado (TEACHER AIDE [employer]ERICAL) 01/17/2016 01/17/2016 oxycodone hcl 5 mg tablet 40 10 Brandyn Mercado (TEACHER AIDE CLERICAL) 01/12/2016 01/12/2016 alprazolam 0.25 mg tablet 20 10 Mason Sutton ([facility])"
--- NOTE | 2016-09-10 22:33 | DS ---
DISCHARGE SUMMARY: DATE OF ADMISSION: 09/08/16 DATE OF DISCHARGE: 09/10/16 HOSPITAL COURSE: This 86-year-old man presented with nausea and vomiting at home. In the emergency room, he had a grand mal seizure. He was given 1000 mg of fosphenytoin IV. His initial phenytoin level was undetectable in the emergency room. The patient did well overall. I think he had gastroenteritis, which has resolved. There was some concern as his white count izabela to 21.7. He was given antibiotics. I am going to give him 5 more days of amoxicillin clavulanate as an outpatient. He did not have any diarrhea during the hospital stay. The patient had an ultrasound of the bladder showing the prostate volume was 135 mL, although the free void volume was 529 mL and he could not void. On the next day, his postvoid residual was 0 as measured by bladder scan. I noticed renal function is quite stable. The patient was really somnolent the first day. I reduced his alprazolam to 0.5 mg t.i.d. and he did much better on this. He was also changed to levetiracetam 250 mg b.i.d. for seizure control. He seemed to be tolerating this quite well by the time of discharge. FINAL DIAGNOSES: 1. Gastroenteritis. 2. Seizure disorder. 3. Atrial fibrillation. 4. Coronary artery disease. 5. 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 6. Benign prostatic hypertrophy. DISCHARGE MEDICATIONS: 1. Acetaminophen 650 mg every 4 hours p.r.n. 2. Apixaban 2.5 mg b.i.d. 3. Alprazolam 0.5 mg t.i.d. 4. Levothyroxine 175 mcg daily. 5. Tamsulosin 0.4 mg daily. 6. Finasteride 5 mg daily. 7. Baclofen 20 mg at h.s. 8. Senna/docusate two at h.s. p.r.n. 9. Tramadol 50 mg t.i.d. p.r.n. 10. Vitamin D3 50,000 units as prescribed. 11. Acetaminophen 1000 mg b.i.d. 12. Metoprolol succinate 25 mg daily. 13. Furosemide 40 mg daily. 14. Amiodarone 100 mg daily. 15. Amoxicillin clavulanate 875 mg b.i.d. 16. Levetiracetam 250 mg b.i.d. CC: Dr. Higgins* [id number]/[facility] #: [id number] JEW[facility] MATERNITY HOSPITALYassine
--- NOTE | 2016-09-11 00:25 | EEG ---
ELECTROENCEPHALOGRAPHY: DATE OF STUDY: DATE OF DICTATION: 09/10/16 - ROOM #[id number] PATIENT OF: Dr. Taylor. CLINICAL PROBLEM: This is an 86-year-old being evaluated for 4 episodes of nausea and vomiting with a past history of stroke. This study was done for possible seizures and may have had a seizure in the emergency room. MEDICATIONS: Include: 1. Senokot. 2. Ultram. 3. Zofran. 4. Lopressor. 5. Colace. 6. Tamsulosin. 7. Synthroid. 8. Baclofen. 9. Flomax. 10. Metoprolol. 11. Keppra. 12. Lasix. 13. Proscar. 14. Apixaban. 15. Augmentin. 16. Amlodipine. 17. Amiodarone. 18. Xanax. REPORT: With the patient awake, background cerebral activity consists of admixed diffuse alpha and beta range frequencies. With patient drowsy, there is some slowing into the theta range. No activation procedures are performed. The patient never falls asleep. No epileptiform potentials, focal abnormalities, or major asymmetries of background are noted. CLINICAL IMPRESSION: This awake and briefly drowsy EEG shows no epileptiform potentials or clear-cut tendency toward seizures. [id number]/[facility] #: [id number] [facility] MEDICAL CENTERYassine
== END 2016-09-10 14:10 | disposition home health service (06) | DRG 391 ==
LOC: ED 17:33 → MED 21:40 → INTOOBSV 21:40 → OBSVTOIN 09-08 13:30
PROVIDERS: ADMIT Internal Medicine; ATTEND Internal Medicine
PROC: 4A00X4Z Measurement of Central Nervous Electrical Activity, External Approach (ICD-10-PCS; principal; 2016-09-10)
PROC: 3E0234Z Introduction of Serum, Toxoid and Vaccine into Muscle, Percutaneous Approach (ICD-10-PCS; 2016-09-10)
DX: K52.9 Noninfective gastroenteritis and colitis, unspecified (principal); J18.9 Pneumonia, unspecified organism; I11.0 Hypertensive heart disease with heart failure; I69.354 Hemiplegia and hemiparesis following cerebral infarction affecting left non-dominant side; I48.91 Unspecified atrial fibrillation; I50.9 Heart failure, unspecified; I25.10 Atherosclerotic heart disease of native coronary artery without angina pectoris; Z95.5 Presence of coronary angioplasty implant and graft; I25.2 Old myocardial infarction; Z87.891 Personal history of nicotine dependence; N40.0 Benign prostatic hyperplasia without lower urinary tract symptoms; M19.90 Unspecified osteoarthritis, unspecified site; Z87.442 Personal history of urinary calculi; H26.9 Unspecified cataract; G40.909 Epilepsy, unspecified, not intractable, without status epilepticus; F41.9 Anxiety disorder, unspecified; F32.9 Major depressive disorder, single episode, unspecified; F12.90 Cannabis use, unspecified, uncomplicated; E78.5 Hyperlipidemia, unspecified; Z82.49 Family history of ischemic heart disease and other diseases of the circulatory system; E03.9 Hypothyroidism, unspecified; K64.9 Unspecified hemorrhoids; Z23 Encounter for immunization; H91.90 Unspecified hearing loss, unspecified ear
CPT/HCPCS: 36415; 71010; 76857; 80053; 80185; 81003; 81015; 83605; 83690; 85025; 85610; 86140; 87641; 87899; 90732; 93005; 95816; A9270-GY; G0378; J0456; J0696; J2405; J2543; Q2009